=== PATIENT | female | born 1995 | race Caucasian/White ===

== ENCOUNTER 2025-01-25 17:27 | Emergency (ER) | payer BC ==
[~2025-01-25] VITALS: Ht 162.6 cm; Wt 65.4 kg
[2025-01-25 17:36] VITALS: BP 110/72; PULSE 61; RESP 16; TEMP 99; O2SAT 99
[2025-01-25] MEDS ORDERED: CLIN300C54 PO (17:51)
[2025-01-25] MEDS ORDERED: HYDR-3965 PO (17:51)
--- NOTE | 2025-01-25 17:53 | Physician Documentation ---
HPI ~ General Chief Complaint: Tooth Problem Stated Complaint: TOOTH PAIN Time Seen by MD: 17:29 OK to notify your PCP?: Yes Source: patient Mode of Arrival: POV Exam Limitations: no limitations History of Present Illness HPI Comment Reports having right upper molar tooth pain and reports that she had an abscess it feels like it may have popped. She reports that she has been taking the 500 mg amoxicillin 3 times a day which was prescribed by the dentist in [place]. She does have an upcoming appointment for extraction of this tooth. She has been alternating Tylenol and ibuprofen without any relief. She reports it the abscess seems to be getting worse despite taking the amoxicillin. Medication Reconciliation Allergies: Coded Allergies: No Known Allergies (Unverified , 01/25/25) Scheduled Clindamycin HCl (Clindamycin HCl), 1 CAP PO Q6H Scheduled PRN Hydrocodone Bit/Acetaminophen 5/325 MG ([place] 5/325 MG), 1 TAB PO TID PRN PRN for pain Review of Systems All Other Systems at this time: Reviewed and Negative Physical Exam Vital Signs: RN Vital Signs have been reviewed: Yes, Temperature: 99.0, Source: Temporal, Heart Rate: 61, Respiratory Rate: 16, BP: 110/72, Pulse Oximetry: 99, Weight: 65.400 Oxygen Flow Rate: 0 Pulse Oximetry Reflects: adequate oxygenation Physical Exam General: Alert, no distress. HEENT: No injection, moist mucous membranes. Neck: Full range of motion. No anterior cervical lymphadenopathy Respiratory: No respiratory distress, equal chest rise and fall. Clear lungs bilaterally. Chest: No accessory muscle use. Cardiovascular: Regular rate and rhythm. Gastrointestinal: Nondistended. Extremities: Normal range of motion, no deformity. Neurologic: Oriented x4. Psychiatric: Normal mood and affect. Skin: Normal color, warm and dry. Palate: normal inspection Teeth/Gums: tender, draining, gingiva redness, gingiva swelling Teeth/Gums tooth # 3. Ulceration present to outer portion of gum. No trismus. Progress Results/Orders Reviewed/noted all lab results: Yes Results/Orders Completed Orders - BECKI GAVIRIA [employer] Clindamycin Capsule (Cleocin Capsule) (01/25/25 17:50) Vital Signs 01/25/25 17:36 Temp 99.0 Pulse 61 Resp 16 B/P (MAP) 110/72 Pulse Ox 99 O2 Flow Rate 0 Medical Decision Making Additional information obtaine: old records Findings We discussed that the amoxicillin has not been helping with her dental abscess and it appears to be getting worse despite the antibiotics. We discussed that she should stop taking the amoxicillin since it is not helping and start taking clindamycin. First dose of clindamycin given here in the department rest sent to the pharmacy. She is driving herself today so unable to give [place] here but did send a prescription to the pharmacy. Instructions given. Differential Dx:Considerations: Include: Alveolar fracture, Alveolar osteitis, Facial Cellulitis, Periapical abscess, Peridontal abscess, Tooth avulsion, Tooth Fracture Departure Disposition: HOME / SELF CARE / HOMELESS Impression: Primary Impression: Dental abscess Additional Impression: Toothache Condition: Stable Discharge Instructions: Dental Abscess Additional Instructions: Continue with scheduled appointment with dentist for tooth extraction. Take all antibiotics as prescribed. Stop taking the amoxicillin as it has not helped with symptoms. Taking the clindamycin. First dose given here in the department. Take the [place] as needed for pain. Use Tylenol and/or ibuprofen for pain relief. Take care not to exceed 4000 mg of Tylenol within a 24 hour period. Referrals: NO PRIMARY CARE PROVIDER (PCP) Prescriptions Hydrocodone Bit/Acetaminophen 5/325 MG ([place] 5/325 MG) 5 Mg/325 Mg Tablet 1 TAB PO TID PRN PRN for pain for 5 Days, #15 TAB Prov: BECKI GAVIRIA 01/25/25 Clindamycin HCl (Clindamycin HCl) 300 Mg Capsule 1 CAP PO Q6H for 10 Days, #40 CAP Prov: BECKI GAVIRIAP 01/25/25 Education Educated: Patient Educated regarding: diagnosis, treatment, prognosis, need for follow up Additional Comment Medical Screen Exam This patient recieved a medical screening examination. After reviewing the individual's medical complaints with presenting symptoms and performing an riya ropriate physical examination, it was determined that no immediate life- threatening emergency medical condition is present. This individual is also not a women having contractions. Signature Scribe Signature: . Attestation: Scribed for Becki Gaviria by Becki Haq NP . 01/25/25 17:55 Parts of this note were created using [employer] voice recognition software program. While efforts were made to correct any mistakes made by this voice recognition software program, nonsensical phrases may remain in this note. In addition, there may be errors and syntax, grammar, content and spelling. BECKI GAVIRIA [facility] Jan 25, 2025 17:53
== END 2025-01-25 18:12 | disposition home or self-care (01) ==
LOC: ER 17:27
DX: K04.7 Periapical abscess without sinus (principal)
CPT/HCPCS: 99283